=== PATIENT | male | born 1985 | race Caucasian/White ===

== ENCOUNTER 2019-05-04 12:01 | Inpatient (IN) | payer OTHER ==
[~2019-05-04] VITALS: Ht 182.9 cm; Wt 140.3 kg
--- NOTE | ~2019-05-04 | EKG ---
[place], [place] ELECTROCARDIOGRAM REPORT NAME: HUNG GREENBERG UNIT #: [id number] ROOM: 415 DOCTOR: DEBI DRAFT REPORT BIRTHDATE: [birth year] [facility] Test Date: 2019-05-05 Test Time: 16:19:21 Pat Name: HUNG GREENBERG Department: Room: 415 2 Gender: M [employer]ace [employer]: : 1985 Requested By: JELENA LINARES Order Number: [id number] Reading MD: Chuck Aguilar MD Measurements Intervals [place] Rate: 91 P: 4 TN: 151 QRS: 2 QRSD: 87 T: 17 QT: 362 QTc: 446 Interpretive Statements Sinus rhythm LVH by voltage Electronically Signed On 05-06-2019 13:16:43 PDT by Chuck Aguilar MD CM:EKGRPT:ELECTROCARDIOGRAM REPORT 1619 1316 JELENA CARRERA DRAFT REPORT JELENA LINARES
[2019-05-04 12:06] VITALS: BP 141/97
[2019-05-04 12:45] LABS: BILIRUBIN NEGATIVE (NEGATIVE); BLOOD NEGATIVE (NEGATIVE); CLARITY SL CLOUDY (CLEAR); COLOR YELLOW (YELLOW); GLUCOSE NEGATIVE (NEGATIVE); KETONE NEGATIVE (NEGATIVE); LEUKO ESTERASE NEGATIVE (NEGATIVE); NITRITE NEGATIVE (NEGATIVE); SPECIFIC GRAVITY 1.025 (1.005-1.030); UROBILINOGEN 0.2 E.U./dl (0.2-1.0)
[2019-05-04 12:51] LABS: BASO % 0.2 % (0.0-1.0); EOS % 0.2 % (1.0-4.0); HEMATOCRIT 42.3 % (42.0-52.0); HEMOGLOBIN 14.8 g/dl (14.0-18.0); LYMPH # 1.7 10*3/uL (1.3-4.4); LYMPH % 12.8 % (27.0-41.0); MEAN CELL VOLUME 87.2 fl (80.0-94.0); MEAN CORPUSCULAR HGB 30.5 pg (27.0-31.0); MEAN PLATELET VOLUME 9.7 fl (9.6-12.3); MONO # 0.8 10*3/uL (0.1-1.0); MONO % 5.9 % (3.0-9.0); NEUT # 10.4 10*3/uL (2.3-7.9); NEUT % 80.4 % (47.0-73.0); PLATELET COUNT AUTOMATED 278 10*3/uL (130-400); RED BLOOD COUNT 4.85 10*6/uL (4.50-5.90); RED CELL DISTRI WIDTH 13.1 % (0-14.5); WHITE BLOOD COUNT 12.9 10*3/uL (4.8-10.8)
[2019-05-04 12:57] LABS: MUCOUS TRACE
[2019-05-04 13:06] LABS: ALBUMIN 3.5 gm/dl (3.1-4.5); ALKALINE PHOSPHATASE 89 U/L (45-117); BUN 10 mg/dl (7-24); CHLORIDE 106 mmol/L (98-107); CREATININE 0.85 mg/dL (0.70-1.30); LIPASE 85 U/L (73-393); POTASSIUM 3.5 mmol/L (3.5-5.1); SGOT/AST 15 IU/L (3-35); SGPT/ALT 45 U/L (12-78); SODIUM 137 mmol/L (136-145); TOTAL PROTEIN 7.5 gm/dL (6.4-8.2)
[2019-05-04] MEDS ORDERED: PALIPERIDONE E1.5 MG PO (15:05)
[2019-05-04] MEDS ORDERED: VYVANSE70 MG PO (15:05)
[2019-05-04 15:18] VITALS: BP 137/74
[2019-05-04 15:55] VITALS: BP 134/86
[2019-05-04] MEDS ORDERED: VENT7GM INH (15:56)
[2019-05-04] MEDS ORDERED: BUSPAR5 MG PO (15:58)
[2019-05-04] MEDS ORDERED: CETIRIZINE10 MG PO (15:59)
[2019-05-04 16:00] VITALS: BP 134/86
[2019-05-04 20:00] VITALS: BP 135/79
[2019-05-05] VITALS: BP 125/66; BP 146/86
[2019-05-05 06:21] LABS: BASO % 0.3 % (0.0-1.0); EOS # 0.1 10*3/uL (0.0-0.4); EOS % 0.5 % (1.0-4.0); HEMATOCRIT 38.7 % (42.0-52.0); HEMOGLOBIN 13.3 g/dl (14.0-18.0); LYMPH # 1.7 10*3/uL (1.3-4.4); LYMPH % 14.8 % (27.0-41.0); MEAN CELL VOLUME 89.2 fl (80.0-94.0); MEAN CORPUSCULAR HGB 30.6 pg (27.0-31.0); MEAN CORPUSCULAR HGB CONC 34.4 g/dl (33.0-37.0); MEAN PLATELET VOLUME 10.2 fl (9.6-12.3); MONO # 0.6 10*3/uL (0.1-1.0); MONO % 5.5 % (3.0-9.0); NEUT # 8.8 10*3/uL (2.3-7.9); NEUT % 78.6 % (47.0-73.0); PLATELET COUNT AUTOMATED 271 10*3/uL (130-400); RED BLOOD COUNT 4.34 10*6/uL (4.50-5.90); RED CELL DISTRI WIDTH 13.2 % (0-14.5); WHITE BLOOD COUNT 11.2 10*3/uL (4.8-10.8)
[2019-05-05 06:31] LABS: ALBUMIN 3.2 gm/dl (3.1-4.5); ALKALINE PHOSPHATASE 77 U/L (45-117); BUN 8 mg/dl (7-24); CHLORIDE 107 mmol/L (98-107); CHOLESTEROL 172 mg/dL (<200); CREATININE 0.85 mg/dL (0.70-1.30); FREE T4 0.95 ng/dl (0.76-1.46); PHOSPHOROUS 2.4 mg/dL (2.5-4.9); POTASSIUM 3.1 mmol/L (3.5-5.1); SGOT/AST 17 IU/L (3-35); SGPT/ALT 34 U/L (12-78); SODIUM 139 mmol/L (136-145); TOTAL PROTEIN 6.9 gm/dL (6.4-8.2); TRIGLYCERIDES 147 mg/dl (<150); VLDL CHOLESTEROL 29 mg/dL (6-40)
[2019-05-05 06:36] LABS: HDL CHOLESTEROL 34 mg/dl (40-60); LDL CHOLESTEROL 109 mg/dL (9-159)
[2019-05-05 06:50] LABS: ACT PARTIAL THROMBO TIME 29.2 SECONDS (20.0-32.1)
[2019-05-05 07:49] LABS: VITAMIN D, 25-HYDROXY 24.8 ng/mL (30-100)
[2019-05-05 08:00] VITALS: BP 136/76
[2019-05-05 12:00] VITALS: BP 146/90
[2019-05-05 14:52] VITALS: BP 123/75
[2019-05-05 16:00] VITALS: BP 129/78
[2019-05-05 20:00] VITALS: BP 136/87
[2019-05-06] VITALS: BP 106/65
[2019-05-06 08:00] VITALS: BP 115/63; BP 128/78
[2019-05-06 09:28] LABS: BASO % 0.5 % (0.0-1.0); EOS # 0.2 10*3/uL (0.0-0.4); HEMATOCRIT 39.1 % (42.0-52.0); HEMOGLOBIN 13.6 g/dl (14.0-18.0); LYMPH % 24.4 % (27.0-41.0); MEAN CELL VOLUME 88.5 fl (80.0-94.0); MEAN CORPUSCULAR HGB 30.8 pg (27.0-31.0); MEAN CORPUSCULAR HGB CONC 34.8 g/dl (33.0-37.0); MEAN PLATELET VOLUME 9.7 fl (9.6-12.3); MONO # 0.4 10*3/uL (0.1-1.0); MONO % 4.8 % (3.0-9.0); NEUT # 5.5 10*3/uL (2.3-7.9); NEUT % 68.2 % (47.0-73.0); PLATELET COUNT AUTOMATED 267 10*3/uL (130-400); RED BLOOD COUNT 4.42 10*6/uL (4.50-5.90); RED CELL DISTRI WIDTH 13.2 % (0-14.5); WHITE BLOOD COUNT 8.1 10*3/uL (4.8-10.8)
[2019-05-06 10:11] LABS: CHLORIDE 108 mmol/L (98-107); POTASSIUM 3.4 mmol/L (3.5-5.1); SODIUM 140 mmol/L (136-145)
[2019-05-06 10:18] LABS: ALBUMIN 3.1 gm/dl (3.1-4.5); ALKALINE PHOSPHATASE 75 U/L (45-117); BUN 7 mg/dl (7-24); CREATININE 0.73 mg/dL (0.70-1.30); SGOT/AST 22 IU/L (3-35); SGPT/ALT 39 U/L (12-78); TOTAL PROTEIN 7.1 gm/dL (6.4-8.2)
[2019-05-06 12:00] VITALS: BP 130/78; BP 132/84
[2019-05-06 16:00] VITALS: BP 145/76
[2019-05-06 20:00] VITALS: BP 127/79
[2019-05-07 00:38] VITALS: BP 142/83
[2019-05-07 07:09] LABS: BASO % 0.4 % (0.0-1.0); EOS # 0.2 10*3/uL (0.0-0.4); EOS % 2.1 % (1.0-4.0); HEMOGLOBIN 13.9 g/dl (14.0-18.0); LYMPH % 24.4 % (27.0-41.0); MEAN CELL VOLUME 88.3 fl (80.0-94.0); MEAN CORPUSCULAR HGB 30.7 pg (27.0-31.0); MEAN CORPUSCULAR HGB CONC 34.8 g/dl (33.0-37.0); MEAN PLATELET VOLUME 9.7 fl (9.6-12.3); MONO # 0.4 10*3/uL (0.1-1.0); MONO % 5.5 % (3.0-9.0); NEUT # 5.4 10*3/uL (2.3-7.9); NEUT % 67.4 % (47.0-73.0); PLATELET COUNT AUTOMATED 294 10*3/uL (130-400); RED BLOOD COUNT 4.53 10*6/uL (4.50-5.90); RED CELL DISTRI WIDTH 13.2 % (0-14.5); WHITE BLOOD COUNT 8.1 10*3/uL (4.8-10.8)
[2019-05-07 07:34] LABS: BUN 6 mg/dl (7-24); CHLORIDE 107 mmol/L (98-107); CREATININE 0.86 mg/dL (0.70-1.30); POTASSIUM 3.4 mmol/L (3.5-5.1); SODIUM 140 mmol/L (136-145)
[2019-05-07 08:00] VITALS: BP 128/86
[2019-05-07] MEDS ORDERED: CIPRO500 MG PO (09:10)
[2019-05-07] MEDS ORDERED: FLAGYL500 MG PO (09:10)
[2019-05-07] MEDS ORDERED: VITAMIN D32000 UNI1 PO (09:10)
== END 2019-05-07 10:44 | disposition home or self-care (01) | DRG 872 ==
LOC: ED 12:01 → 4E 14:41 → EDHOLD 14:41 → 4E 15:06
PROVIDERS: Internal Medicine; ADMIT Emergency Medicine
DX: A41.9 Sepsis, unspecified organism (principal); F84.0 Autistic disorder; Z68.41 Body mass index [BMI] 40.0-44.9, adult; K57.32 Diverticulitis of large intestine without perforation or abscess without bleeding; R73.9 Hyperglycemia, unspecified; E80.6 Other disorders of bilirubin metabolism; K76.0 Fatty (change of) liver, not elsewhere classified; J45.909 Unspecified asthma, uncomplicated; F41.9 Anxiety disorder, unspecified; E66.01 Morbid (severe) obesity due to excess calories; E87.6 Hypokalemia; E83.39 Other disorders of phosphorus metabolism; Z80.0 Family history of malignant neoplasm of digestive organs; Z83.79 Family history of other diseases of the digestive system; Z88.1 Allergy status to other antibiotic agents; Z79.899 Other long term (current) drug therapy

== ENCOUNTER → 2019-07-18 | Day surgery (SDC) | payer OTHER ==
[~2019-07-18] VITALS: Ht 185.4 cm; Wt 139.3 kg
[~2019-07-18] MED LIST: BUSPAR5 MG PO; CETIRIZINE10 MG PO; CIPRO500 MG PO; FLAGYL500 MG PO; PALIPERIDONE E1.5 MG PO; VENT7GM INH; VITAMIN D32000 UNI1 PO; VYVANSE70 MG PO
[2019-07-18 07:35] VITALS: BP 125/85
[2019-07-18 09:30] VITALS: BP 127/74
[2019-07-18 09:39] VITALS: BP 116/80
[2019-07-18 10:00] VITALS: BP 129/88
== END | disposition home or self-care (01) ==
LOC: SDC 07-15 08:45
DX: Z12.11 Encounter for screening for malignant neoplasm of colon (principal); K63.5 Polyp of colon; K57.92 Diverticulitis of intestine, part unspecified, without perforation or abscess without bleeding; K64.8 Other hemorrhoids; E66.01 Morbid (severe) obesity due to excess calories; Z68.41 Body mass index [BMI] 40.0-44.9, adult; Z86.010 Personal history of colon polyps
CPT/HCPCS: 00812; G0105

== ENCOUNTER 2020-01-11 10:09 | Emergency (ER) | payer OTHER ==
[~2020-01-11] VITALS: Ht 182.8 cm; Wt 143.8 kg
[2020-01-11 11:04] LABS: BASO % 0.3 % (0.0-1.0); EOS # 0.1 10*3/uL (0.0-0.4); EOS % 0.8 % (1.0-4.0); HEMATOCRIT 44.5 % (42.0-52.0); LYMPH # 1.8 10*3/uL (1.3-4.4); LYMPH % 20.3 % (27.0-41.0); MEAN CELL VOLUME 87.1 fl (80.0-94.0); MEAN CORPUSCULAR HGB 30.3 pg (27.0-31.0); MEAN CORPUSCULAR HGB CONC 34.8 g/dl (33.0-37.0); MEAN PLATELET VOLUME 9.5 fl (9.6-12.3); MONO # 0.5 10*3/uL (0.1-1.0); MONO % 5.4 % (3.0-9.0); NEUT # 6.6 10*3/uL (2.3-7.9); PLATELET COUNT AUTOMATED 328 10*3/uL (130-400); RED BLOOD COUNT 5.11 10*6/uL (4.50-5.90); RED CELL DISTRI WIDTH 13.3 % (0-14.5)
[2020-01-11 11:18] LABS: ALBUMIN 3.7 gm/dl (3.1-4.5); ALKALINE PHOSPHATASE 96 U/L (45-117); BUN 12 mg/dl (7-24); CHLORIDE 107 mmol/L (98-107); CREATININE 0.91 mg/dL (0.70-1.30); LIPASE 86 U/L (73-393); POTASSIUM 3.7 mmol/L (3.5-5.1); SGOT/AST 36 IU/L (3-35); SGPT/ALT 71 U/L (12-78); SODIUM 138 mmol/L (136-145); TOTAL PROTEIN 8.3 gm/dL (6.4-8.2)
[2020-01-11 13:23] LABS: BACTERIA TRACE; BILIRUBIN NEGATIVE (NEGATIVE); BLOOD NEGATIVE (NEGATIVE); CALCIUM OXALATE CRYSTALS 2+; CLARITY SL CLOUDY (CLEAR); COLOR YELLOW (YELLOW); EPITHELIAL CELLS 0-2; GLUCOSE NEGATIVE (NEGATIVE); KETONE NEGATIVE (NEGATIVE); LEUKO ESTERASE NEGATIVE (NEGATIVE); MUCOUS 1+; NITRITE NEGATIVE (NEGATIVE); RBC 0-2 rbc/hpf (0-2); SPECIFIC GRAVITY 1.025 (1.005-1.030); UROBILINOGEN 0.2 E.U./dl (0.2-1.0); WBC 0-2 wbc/hpf (0-5)
[2020-01-11] MEDS ORDERED: FLAGYL500 MG PO (14:31)
[2020-01-11] MEDS ORDERED: CIPRO500 MG PO (14:31)
[2020-01-11] MEDS ORDERED: NORCO 5-325 TA1 EACH PO (14:31)
== END 2020-01-11 14:38 | disposition home or self-care (01) ==
LOC: ED 10:09
PROVIDERS: Physician Assistant
DX: K57.32 Diverticulitis of large intestine without perforation or abscess without bleeding (principal); F31.9 Bipolar disorder, unspecified; Z88.8 Allergy status to other drugs, medicaments and biological substances; Z79.899 Other long term (current) drug therapy

== ENCOUNTER → 2020-02-26 | Outpatient (CLI) | payer OTHER ==
[~2020-02-26] MED LIST changes: +NORCO 5-325 TA1 EACH PO
[2020-02-26 08:34] LABS: ACT PARTIAL THROMBO TIME 27.7 SECONDS (20.0-32.1)
[2020-02-26 09:00] LABS: ALBUMIN 3.4 gm/dl (3.1-4.5); ALKALINE PHOSPHATASE 96 U/L (45-117); BUN 9 mg/dl (7-24); CHLORIDE 107 mmol/L (98-107); CREATININE 0.85 mg/dL (0.70-1.30); IRON 67 ug/dL (65-175); POTASSIUM 3.3 mmol/L (3.5-5.1); SGOT/AST 37 IU/L (3-35); SGPT/ALT 69 U/L (12-78); SODIUM 138 mmol/L (136-145); TOTAL IRON BINDING CAPACITY 271 ug/dl (250-450); TOTAL PROTEIN 7.6 gm/dL (6.4-8.2)
[2020-02-27 05:06] LABS: HEPATITIS B SURFACE AB Reactive (.); HEPATITIS B SURFACE AG Negative (Negative)
[2020-02-27 07:10] LABS: ALPHA-1-ANTITRYPSIN, SERUM 133 mg/dL (95-164)
[2020-02-27 12:06] LABS: ANTI-SMOOTH MUSCLE ANTIBODY 4 Units (0-19)
== END | disposition home or self-care (01) ==
LOC: LAB 07:47
PROVIDERS: ATTEND Internal Medicine
DX: R94.5 Abnormal results of liver function studies (principal)

== ENCOUNTER 2020-07-14 08:09 | Emergency (ER) | payer OTHER ==
[~2020-07-14] VITALS: Wt 143.3 kg
[2020-07-14 08:56] LABS: BILIRUBIN Negative (Negative); BLOOD Negative (Negative); CLARITY Clear (Clear); COLOR Dark Yellow (Yellow); GLUCOSE Negative (Negative); KETONE Negative (Negative); LEUKO ESTERASE Negative (Negative); NITRITE Negative (Negative); SPECIFIC GRAVITY >= 1.030 (1.001-1.030)
[2020-07-14 09:08] LABS: BACTERIA 1+; CALCIUM OXALATE CRYSTALS 1+; MUCOUS 1+
[2020-07-14 09:23] LABS: BASO % 0.4 % (0.0-1.0); EOS # 0.1 10*3/uL (0.0-0.4); EOS % 1.2 % (1.0-4.0); HEMATOCRIT 43.2 % (42.0-52.0); LYMPH # 2.4 10*3/uL (1.3-4.4); LYMPH % 29.4 % (27.0-41.0); MEAN CELL VOLUME 87.3 fl (80.0-94.0); MEAN CORPUSCULAR HGB 29.9 pg (27.0-31.0); MEAN CORPUSCULAR HGB CONC 34.3 g/dl (33.0-37.0); MEAN PLATELET VOLUME 9.3 fl (9.6-12.3); MONO # 0.4 10*3/uL (0.1-1.0); MONO % 5.1 % (3.0-9.0); NEUT # 5.2 10*3/uL (2.3-7.9); NEUT % 63.8 % (47.0-73.0); PLATELET COUNT AUTOMATED 305 10*3/uL (130-400); RED BLOOD COUNT 4.95 10*6/uL (4.50-5.90); RED CELL DISTRI WIDTH 13.4 % (0-14.5); WHITE BLOOD COUNT 8.2 10*3/uL (4.8-10.8)
[2020-07-14 09:45] LABS: ALBUMIN 3.4 gm/dl (3.1-4.5); ALKALINE PHOSPHATASE 104 U/L (45-117); BUN 8 mg/dl (7-24); CHLORIDE 106 mmol/L (98-107); CREATININE 0.83 mg/dL (0.70-1.30); LIPASE 90 U/L (73-393); POTASSIUM 3.7 mmol/L (3.5-5.1); SGOT/AST 20 IU/L (3-35); SGPT/ALT 52 U/L (12-78); SODIUM 138 mmol/L (136-145); TOTAL PROTEIN 7.5 gm/dL (6.4-8.2)
[2020-07-14] MEDS ORDERED: CIPRO500 MG PO (11:01)
[2020-07-14] MEDS ORDERED: FLAGYL500 MG PO (11:01)
== END 2020-07-14 11:19 | disposition home or self-care (01) ==
LOC: ED 08:09
PROVIDERS: Emergency Medicine
DX: K57.32 Diverticulitis of large intestine without perforation or abscess without bleeding (principal); Z88.1 Allergy status to other antibiotic agents; Z79.899 Other long term (current) drug therapy

== ENCOUNTER 2020-08-03 08:22 | Emergency (ER) | payer OTHER ==
[~2020-08-03] VITALS: Ht 182.8 cm; Wt 143.8 kg
[2020-08-03 09:26] LABS: BASO % 0.3 % (0.0-1.0); EOS # 0.1 10*3/uL (0.0-0.4); EOS % 1.2 % (1.0-4.0); HEMATOCRIT 42.7 % (42.0-52.0); LYMPH # 2.1 10*3/uL (1.3-4.4); LYMPH % 28.6 % (27.0-41.0); MEAN CELL VOLUME 86.1 fl (80.0-94.0); MEAN CORPUSCULAR HGB 29.2 pg (27.0-31.0); MEAN PLATELET VOLUME 9.4 fl (9.6-12.3); MONO # 0.5 10*3/uL (0.1-1.0); MONO % 6.5 % (3.0-9.0); NEUT # 4.5 10*3/uL (2.3-7.9); PLATELET COUNT AUTOMATED 304 10*3/uL (130-400); RED BLOOD COUNT 4.96 10*6/uL (4.50-5.90); RED CELL DISTRI WIDTH 13.4 % (0-14.5); WHITE BLOOD COUNT 7.2 10*3/uL (4.8-10.8)
[2020-08-03 09:41] LABS: ALBUMIN 3.4 gm/dl (3.1-4.5); ALKALINE PHOSPHATASE 99 U/L (45-117); BUN 12 mg/dl (7-24); CHLORIDE 108 mmol/L (98-107); CREATININE 0.79 mg/dL (0.70-1.30); LIPASE 107 U/L (73-393); POTASSIUM 3.6 mmol/L (3.5-5.1); SGOT/AST 23 IU/L (3-35); SGPT/ALT 58 U/L (12-78); SODIUM 139 mmol/L (136-145); TOTAL PROTEIN 7.3 gm/dL (6.4-8.2)
[2020-08-03] MEDS ORDERED: PHENERGAN25 M3 PO (11:40)
[2020-08-03] MEDS ORDERED: CIPRO500 MG PO (11:40)
[2020-08-03] MEDS ORDERED: FLAGYL500 MG PO (11:40)
== END 2020-08-03 12:07 | disposition home or self-care (01) ==
LOC: ED 08:22
PROVIDERS: Emergency Medicine
DX: K57.32 Diverticulitis of large intestine without perforation or abscess without bleeding (principal)

== ENCOUNTER 2020-11-18 15:06 | Emergency (ER) | payer OTHER ==
[~2020-11-18] VITALS: Ht 182.8 cm; Wt 138.8 kg
[~2020-11-18 15:06] MED LIST changes: +PHENERGAN25 M3 PO
[2020-11-18 17:39] LABS: BASO % 0.4 % (0.0-1.0); EOS # 0.1 10*3/uL (0.0-0.4); EOS % 0.9 % (1.0-4.0); HEMATOCRIT 40.8 % (42.0-52.0); LYMPH # 2.2 10*3/uL (1.3-4.4); LYMPH % 26.1 % (27.0-41.0); MEAN CELL VOLUME 88.1 fl (80.0-94.0); MEAN CORPUSCULAR HGB 30.5 pg (27.0-31.0); MEAN CORPUSCULAR HGB CONC 34.6 g/dl (33.0-37.0); MEAN PLATELET VOLUME 9.3 fl (9.6-12.3); MONO # 0.4 10*3/uL (0.1-1.0); MONO % 5.2 % (3.0-9.0); NEUT # 5.7 10*3/uL (2.3-7.9); PLATELET COUNT AUTOMATED 336 10*3/uL (130-400); RED BLOOD COUNT 4.63 10*6/uL (4.50-5.90); RED CELL DISTRI WIDTH 13.2 % (0-14.5); WHITE BLOOD COUNT 8.5 10*3/uL (4.8-10.8)
[2020-11-18 17:59] LABS: ALBUMIN 3.3 gm/dl (3.1-4.5); ALKALINE PHOSPHATASE 100 U/L (45-117); BUN 9 mg/dl (7-24); CHLORIDE 107 mmol/L (98-107); CREATININE 0.96 mg/dL (0.70-1.30); LIPASE 76 U/L (73-393); POTASSIUM 3.8 mmol/L (3.5-5.1); SGOT/AST 21 IU/L (3-35); SGPT/ALT 45 U/L (12-78); SODIUM 141 mmol/L (136-145); TOTAL PROTEIN 7.6 gm/dL (6.4-8.2)
[2020-11-18 18:31] LABS: BILIRUBIN Negative (Negative); BLOOD Negative (Negative); CLARITY Clear (Clear); COLOR Yellow (Yellow); GLUCOSE Negative (Negative); KETONE Negative (Negative); LEUKO ESTERASE Negative (Negative); NITRITE Negative (Negative); UROBILINOGEN 0.2 E.U./dl (0.0-1.0)
[2020-11-18 18:58] LABS: MUCOUS 1+
[2020-11-18 18:59] LABS: COARSE GRANULAR CAST 0-2; FINE GRANULAR CAST 0-2; RBC 0-2 rbc/hpf (0-2)
== END 2020-11-18 19:35 | disposition home or self-care (01) ==
LOC: ED 15:06
PROVIDERS: Emergency Medicine
DX: R10.9 Unspecified abdominal pain (principal); Z88.8 Allergy status to other drugs, medicaments and biological substances; Z79.899 Other long term (current) drug therapy

== ENCOUNTER → 2022-03-01 | Outpatient (CLI) | payer OTHER | END | disposition home or self-care (01) | LOC: LAB 10:08 → RAD 10:08 | PROVIDERS: ATTEND Nurse Practitioner Family | DX: Z23 Encounter for immunization (principal); M25.552 Pain in left hip; M79.671 Pain in right foot; J45.20 Mild intermittent asthma, uncomplicated; J30.9 Allergic rhinitis, unspecified ==

== ENCOUNTER → 2023-06-09 | Outpatient (CLI) | payer OTHER ==
[2023-06-09 09:21] LABS: BASO # 0.1 10*3/uL (0.0-0.1); BASO % 0.5 % (0.0-1.0); EOS # 0.1 10*3/uL (0.0-0.4); EOS % 1.1 % (1.0-4.0); LYMPH % 31.9 % (27.0-41.0); MEAN CELL VOLUME 87.5 fl (80.0-94.0); MEAN CORPUSCULAR HGB 31.2 pg (27.0-31.0); MEAN CORPUSCULAR HGB CONC 35.7 g/dl (33.0-37.0); MEAN PLATELET VOLUME 9.3 fl (9.6-12.3); MONO # 0.6 10*3/uL (0.1-1.0); MONO % 5.8 % (3.0-9.0); NEUT # 5.7 10*3/uL (2.3-7.9); NEUT % 60.3 % (47.0-73.0); PLATELET COUNT AUTOMATED 307 10*3/uL (130-400); RED BLOOD COUNT 5.26 10*6/uL (4.50-5.90); RED CELL DISTRI WIDTH 13.2 % (0-14.5); WHITE BLOOD COUNT 9.4 10*3/uL (4.8-10.8)
[2023-06-09 09:58] LABS: ALKALINE PHOSPHATASE 120 U/L (46-116); BUN 9 mg/dl (9-23); CHLORIDE 104 mmol/L (98-107); CHOLESTEROL 207 mg/dL (<200); LDL CHOLESTEROL 96 mg/dL (9-159); POTASSIUM 3.9 mmol/L (3.4-5.1); SGPT/ALT 64 U/L (5-49); TOTAL PROTEIN 7.6 gm/dL (6.0-8.0); TRIGLYCERIDES 379 mg/dl (<150)
== END | disposition home or self-care (01) ==
LOC: LAB 09:02
PROVIDERS: ATTEND Nurse Practitioner Family
DX: J30.9 Allergic rhinitis, unspecified (principal); E66.9 Obesity, unspecified; J45.909 Unspecified asthma, uncomplicated

== ENCOUNTER → 2023-09-19 | Outpatient (CLI) | payer OTHER | END | disposition home or self-care (01) | LOC: RAD 07:56 | PROVIDERS: ATTEND Nurse Practitioner Family | DX: M25.551 Pain in right hip (principal) ==

== ENCOUNTER 2023-09-25 01:07 | Emergency (ER) | payer OTHER ==
[~2023-09-25] VITALS: Ht 182.8 cm; Wt 129.3 kg
[2023-09-25 01:50] LABS: BASO % 0.4 % (0.0-1.0); EOS # 0.1 10*3/uL (0.0-0.4); EOS % 1.1 % (1.0-4.0); HEMATOCRIT 47.1 % (42.0-52.0); LYMPH # 2.5 10*3/uL (1.3-4.4); LYMPH % 25.5 % (27.0-41.0); MEAN CORPUSCULAR HGB 30.1 pg (27.0-31.0); MEAN CORPUSCULAR HGB CONC 34.2 g/dl (33.0-37.0); MEAN PLATELET VOLUME 9.2 fl (9.6-12.3); MONO # 0.5 10*3/uL (0.1-1.0); MONO % 5.3 % (3.0-9.0); NEUT # 6.6 10*3/uL (2.3-7.9); NEUT % 67.6 % (47.0-73.0); PLATELET COUNT AUTOMATED 355 10*3/uL (130-400); RED BLOOD COUNT 5.35 10*6/uL (4.50-5.90); RED CELL DISTRI WIDTH 12.7 % (0-14.5); WHITE BLOOD COUNT 9.8 10*3/uL (4.8-10.8)
[2023-09-25 02:07] LABS: BILIRUBIN Negative (Negative); BLOOD Negative (Negative); CLARITY Clear (Clear); COLOR Yellow (Yellow); GLUCOSE Negative (Negative); KETONE Negative (Negative); LEUKO ESTERASE Negative (Negative); NITRITE Negative (Negative); PH 5.5 (4.5-8.0); UROBILINOGEN 0.2 E.U./dl (0.0-1.0)
[2023-09-25 02:09] LABS: BUN 12 mg/dl (9-23); CHLORIDE 102 mmol/L (98-107); POTASSIUM 3.9 mmol/L (3.4-5.1)
[2023-09-25 02:24] LABS: WBC 0-2 wbc/hpf (0-5)
== END 2023-09-25 05:30 | disposition home or self-care (01) ==
LOC: ED 01:07
PROVIDERS: Emergency Medicine
DX: E11.649 Type 2 diabetes mellitus with hypoglycemia without coma (principal); F41.9 Anxiety disorder, unspecified; J45.909 Unspecified asthma, uncomplicated; E87.6 Hypokalemia; E83.39 Other disorders of phosphorus metabolism; F31.9 Bipolar disorder, unspecified; Z88.8 Allergy status to other drugs, medicaments and biological substances

== ENCOUNTER → 2025-02-28 | Outpatient (CLI) | payer OTHER ==
[2025-02-28 10:44] LABS: BUN 13 mg/dl (9-23); SGPT/ALT 34 U/L (5-49)
[2025-03-01 02:07] LABS: HEMOGOLBIN A1C 8.2 % (4.8-5.6)
== END | disposition home or self-care (01) ==
LOC: LAB 09:26
PROVIDERS: Student in an Organized Health Care Education/Training Program; ATTEND Internal Medicine Endocrinology, Diabetes & Metabolism
DX: E11.9 Type 2 diabetes mellitus without complications (principal)